=== PATIENT | male | born 1960 | race American Indian/Alaskan Native ===

== ENCOUNTER 2017-04-21 22:00 | Emergency (ER) | payer SELFPAY ==
[2017-04-21] MEDS ORDERED: DECADRON IM ONE (23:03)
[2017-04-21] MEDS ORDERED: DUONEB 0.5 MG-3 MG/3 ML SOLN IH ONE (23:06)
--- NOTE | 2017-04-21 23:30 | XRay Report ---
FINAL REPORT PROCEDURE: XR CHEST ROUTINE 2V TECHNIQUE: PA and lateral chest radiographs were obtained. CPT 45735 HISTORY: Dyspnea COMPARISON: No prior studies are available for comparison. FINDINGS: Heart: Normal. Mediastinum/Vessels: Normal. Lungs/Pleural space: Normal. Bony thorax: No acute osseous abnormality. Other: IMPRESSION: There is no evidence of an acute cardiopulmonary process.
--- NOTE | 2017-04-21 23:40 | Emergency Department Report ---
ED Shortness of Breath HPI - General Chief Complaint: Dyspnea/Respdistress Stated Complaint: SORE THROAT/RODERICK/COUGH Time Seen by Provider: 04/21/17 23:02 Source: patient Mode of arrival: Ambulatory Limitations: No Limitations - History of Present Illness Initial Comments: Patient is a 56-year-old male with no past medical history presenting to the ER with shortness of breath. Patient reports he works with [employer] and at the end of his shift he took off his protective wear and was exposed to some noxious fumes for just a few minutes. Patient now reports mild shortness of breath and a sore throat. Patient denies any voice change, handling of secretions or difficulty swallowing. Patient reports usually does wear a heavy- duty mask ,but since he was nearing the end of the shift he took it off. Otherwise no fevers, chills, CRANE, dizziness, eye pain, vision changes, chest pain , abd pain, skin changes, travel, or sick contacts. Pt is a smoker. - Related Data Home Medications Medication Instructions Recorded Confirmed Last Taken No Known Home Medications [No 04/21/17 04/21/17 Unknown Reported Home Medications] Allergies Allergy/AdvReac Type Severity Reaction Status Date / Time No Known Allergies Allergy Unverified 04/21/17 22:21 ED Review of Systems ROS: Stated complaint: SORE THROAT/RODERICK/COUGH Other details as noted in HPI Comment: All other systems reviewed and negative ED Past Medical Hx - Past Medical History Previous Medical History?: Yes Hx GERD: Yes - Surgical History Past Surgical History?: No - Social History Smoking Status: Current Every Day Smoker - Medications Home Medications: Home Medications Medication Instructions Recorded Confirmed Last Taken Type No Known Home Medications [No 04/21/17 04/21/17 Unknown History Reported Home Medications] ED Physical Exam - General Limitations: No Limitations General appearance: alert, in no apparent distress - Head Head exam: Present: atraumatic, normocephalic - Eye Eye exam: Present: normal appearance - ENT ENT exam: Present: normal orophraynx, mucous membranes moist, other (handing secretions, no pharyngeal edema or erythema, no sublingual edema or erythema) - Neck Neck exam: Present: normal inspection - Respiratory Respiratory exam: Present: normal lung sounds bilaterally, decreased breath sounds (at the bases), other (Speaking full sentences). Absent: respiratory distress, wheezes, rales, rhonchi, stridor - Cardiovascular Cardiovascular Exam: Present: regular rate, normal rhythm. Absent: systolic murmur, diastolic murmur, rubs, gallop - GI/Abdominal GI/Abdominal exam: Present: soft, normal bowel sounds - Rectal Rectal exam: Present: deferred - Extremities Exam Extremities exam: Present: normal inspection - Back Exam Back exam: Present: normal inspection - Neurological Exam Neurological exam: Present: alert, oriented X3 - Psychiatric Psychiatric exam: Present: normal affect, normal mood - Skin Skin exam: Present: warm, dry, intact, normal color. 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 ED Disposition Clinical Impression: Dyspnea, Chemical exposure Disposition: DISCHARGED TO HOME OR SELFCARE Is pt being admited?: No Condition: Stable Instructions: Dyspnea (ED) Referrals: PRIMARY CARE, [Primary Care Provider] - 3-5 Days
[2017-04-22 01:13] VITALS: BP 126/76
== END 2017-04-22 01:13 | disposition home or self-care (01) ==
LOC: ED 22:00
DX: R06.09 Other forms of dyspnea (principal); K21.9 Gastro-esophageal reflux disease without esophagitis; F17.200 Nicotine dependence, unspecified, uncomplicated; Z77.098 Contact with and (suspected) exposure to other hazardous, chiefly nonmedicinal, chemicals
CPT/HCPCS: 71020; 94640; 96372; 99283; J1100